=== PATIENT | female | born 1960 | race Caucasian/White ===

== ENCOUNTER 2019-08-05 13:59 | Emergency (ER) | payer OTHER ==
[~2019-08-05] VITALS: Ht 175.3 cm; Wt 101.2 kg
[2019-08-05] MEDS ORDERED: MINIVELLE1 EAC1 TOP (14:08)
[2019-08-05 15:43] VITALS: BP 132/63
[2019-08-05] MEDS ORDERED: LIDOCAINE PAIN1 EACH TOP (15:44)
[2019-08-05] MEDS ORDERED: GABAPENTIN 100100 MG PO (15:44)
== END 2019-08-05 15:58 | disposition home or self-care (01) ==
LOC: ER 13:59
DX: M54.42 Lumbago with sciatica, left side (principal); Z98.890 Other specified postprocedural states; Z88.1 Allergy status to other antibiotic agents; Z88.8 Allergy status to other drugs, medicaments and biological substances

== ENCOUNTER 2019-08-15 09:03 | Emergency (ER) | payer OTHER ==
[~2019-08-15] VITALS: Ht 157.5 cm; Wt 86.2 kg
[~2019-08-15 09:03] MED LIST: GABAPENTIN 100100 MG PO; LIDOCAINE PAIN1 EACH TOP; MINIVELLE1 EAC1 TOP
[2019-08-15] MEDS ORDERED: NORCO 5-325 TA1 EAC1 PO (09:06)
[2019-08-15 10:51] VITALS: BP 145/121
== END 2019-08-15 10:53 | disposition left against medical advice (07) ==
LOC: ER 09:03
DX: Z53.21 Procedure and treatment not carried out due to patient leaving prior to being seen by health care provider (principal)